=== PATIENT | female | born 1995 | race Caucasian/White ===

== ENCOUNTER 2016-05-24 19:36 | Emergency (ER) | payer MEDICAID ==
[~2016-05-24] VITALS: Ht 162.6 cm; Wt 109.4 kg
[~2016-05-24 19:36] MED LIST: ALBU1AER INH; PRED20 PO; ZITH250T PO
[2016-05-24 19:55] VITALS: BP 149/99; PULSE 97; RESP 20; TEMP 98.8; O2SAT 95
[2016-05-24 20:05] VITALS: BP 126/70; PULSE 96; O2SAT 95
[2016-05-24] MEDS ORDERED: ALBUAER3 INH (20:06)
[2016-05-24] MEDS ORDERED: ALBU0.08 NEB (20:08)
[2016-05-24] MEDS ORDERED: predniSONE 50 MG TAB PO ONE ×2 (20:45→21:45)
[2016-05-24] MEDS: RESP: ALBUTEROL 2.5 MG/IPRATROPIUM 0.5 MG NEB (SCH) INH ×2 (20:51→20:52)
[2016-05-24 21:02] VITALS: O2SAT 100
[2016-05-24] MEDS ORDERED: RESP: ALBUTEROL 2.5 MG/IPRATROPIUM 0.5 MG NEB (SCH) NEB ONE (21:45)
[2016-05-24] MEDS ORDERED: PRED20 PO (21:52)
--- NOTE | 2016-05-24 21:53 | PD ---
HPI Chief Complaint: Respiratory Symptoms Time Seen by Provider: 20:42 Travel History International Travel<30 days: No Contact w/Intl Traveler<30days: No Traveled to known affect area: No History of Present Illness HPI 21-year-old female presents to the emergency department for complaint of exacerbation of asthma. Patient states that she takes medication on a daily basis. Patient has been on steroid therapy times one month. Patient reports that she moved to the area proximally 2-3 months ago and had medications from her previous physician in [place] but ran out of her steroid approximately one month ago. Patient is not established with a primary care provider. Patient denies any recent febrile illness or respiratory illness. Patient states that she does have issues with environmental allergens. Patient denies any tobacco use but is exposed to tobacco in her household as her smokes cigarettes reportedly smokes a cigarette outside. Patient denies other concerns or complaints. Patient denies fever chills. Patient denies productive cough. Patient does not report any chest pain pleuritic pain or hemoptysis or any GI complaints also denies any urinary symptoms and denies . Patient is status post tubal ligation. Last period was 05/01/16 and normal for her. Patient reports needs medication refill of steroid therapy. PFSH Past Medical History Narrative Medical Asthma, tubal ligation, c-sections G4 P 4 AB 0; no tobacco use; nursing notes reviewed Asthma: Yes Cardiovascular Problems: Yes Respiratory: Yes Tetanus Vaccination: Never Vaccinated Influenza Vaccination: No ?: Not LMP: 05/20/2016 : 4 Para: 4 : 3 Tubal Ligation: Yes Past Surgical History Section: Yes (x4) Social History Alcohol Use: No Tobacco Use: No Substance Use: No Allergies-Medications (Allergen,Severity, Reaction): Coded Allergies: No Known Allergies (Unverified , 05/24/16) Reported Meds & Prescriptions Reported Meds & Active Scripts Active Reported Albuterol Neb (Albuterol Sulfate) 2.5 Mg/3 Ml Neb 2.5 Mg NEB Q4HR NEB PRN Proair Hfa 8.5 GM Inh (Albuterol Sulfate) 90 Mcg/Act Aer 2 Puff INH Q4-6H PRN 108 mcg/actuation Review of Systems Except as stated in HPI: all other systems reviewed are Neg General / Constitutional: No: Fever, Chills HENT: No: Congestion Cardiovascular: No: Chest Pain or Discomfort Respiratory: Positive: Cough, Shortness of Breath, Wheezing, No: Hemoptysis, Pleuritic Pain Gastrointestinal: No: Nausea, Vomiting, Diarrhea, Abdominal Pain Genitourinary: No: Dysuria, Flank Pain Musculoskeletal: No: Myalgias, Arthralgias Skin: No Rash Neurologic: No: Weakness Psychiatric: No: Anxiety Hematologic/Lymphatic: No: Lymph Node Enlargement Physical Exam Narrative GENERAL: Well-developed well-nourished female in no acute distress no respiratory distress SKIN: Warm and dry. HEAD: Normocephalic. EYES: No scleral icterus. No injection or drainage. NECK: Supple, trachea midline. No JVD or lymphadenopathy. CARDIOVASCULAR: Regular rate and rhythm without murmurs, gallops, or rubs. RESPIRATORY: Breath sounds equal bilaterally diminished bilaterally with few expiratory wheezes. No accessory muscle use. GASTROINTESTINAL: Abdomen soft, non-tender, nondistended. MUSCULOSKELETAL: No cyanosis, or edema. BACK: Nontender without obvious deformity. No CVA tenderness. Data Data Last Documented VS Vital Signs Date Time Temp Pulse Resp B/P Pulse Ox O2 Delivery O2 Flow Rate FiO2 05/24/16 21:02 100 05/24/16 21:01 Aerosol Mask 7 05/24/16 20:05 96 126/70 05/24/16 19:55 98.8 20 Orders Ecg Monitoring (05/24/16 20:42) Oximetry (05/24/16 20:42) Oxygen Administration (05/24/16 20:42) Albuterol-Ipratropium Neb (Duoneb Neb) (05/24/16 20:45) Prednisone (Deltasone) (05/24/16 20:45) Prednisone (Deltasone) (05/24/16 21:45) Albuterol-Ipratropium Neb (Duoneb Neb) (05/24/16 21:45) MDM Medical Decision Making Medical Screen Exam Complete: Yes Emergency Medical Condition: Yes Medical Record Reviewed: Yes Differential Diagnosis Exacerbation asthma, rhinosinusitis, environmental allergies, bronchitis, pneumonia Narrative Course Patient given DuoNeb updrafts 2; at time of reassessment lung sounds are much improved; patient given oral dose of prednisone 50 mg and due to few expiratory wheezes and additional DuoNeb Patient reports she has adequate amount of albuterol nebulized solution as well as pro-air inhaler. Patient requests refill for oral steroid therapy. Referrals: Primary Care Physician call for appointment Patient Instructions: General Instructions Additional Instructions: Follow-up with primary care provider Return to the emergency department for any concerns Complete course of steroid as prescribed Increase fluid hydration take acetaminophen/Tylenol as needed for fever 100.4F or greater Med/Other Pt SpecificInfo: Prescription(s) given Scripts Prednisone 20 Mg Tab20 Mg PO BID #10 TAB Ref 0 Prov:Kiesha Vallejo MD 05/24/16 Disposition: 01 DISCHARGE HOME Condition: Stable Kiesha Vallejo MD May 24, 2016 21:53
[2016-05-24 22:10] VITALS: BP 128/57; PULSE 100; RESP 20; O2SAT 98
== END 2016-05-24 22:18 | disposition home or self-care (01) ==
LOC: PHED 19:36
DX: J45.901 Unspecified asthma with (acute) exacerbation (principal)
CPT/HCPCS: 94640; 94664; 99283; J7512

== ENCOUNTER 2017-02-16 08:38 | Emergency (ER) | payer MEDICAID ==
[~2017-02-16] VITALS: Ht 165.1 cm; Wt 107.0 kg
[~2017-02-16 08:38] MED LIST changes: +ALBU0.08 NEB; -ALBU1AER INH; +ALBUAER3 INH; -ZITH250T PO
[2017-02-16 08:39] VITALS: BP 127/81; PULSE 92; RESP 16; TEMP 97.8; O2SAT 96
--- NOTE | 2017-02-16 09:13 | PD ---
HPI Chief Complaint: Cold / Flu Symptoms Time Seen by Provider: 08:44 Travel History International Travel<30 days: No Contact w/Intl Traveler<30days: No Traveled to known affect area: No History of Present Illness HPI This 22-year-old female says she been sick off and on for about 4 weeks. She's been congested and has a cough. She's been coughing up some phlegm. She has a history of asthma and has a steroid inhaler as well as pro-air. She uses both somewhat sporadically. She has a and 2 children out of had similar symptoms and have been sick off and on for several weeks. She is not aware of any mold problem or allergens in her house. She is not aware of any fever she had some discomfort in both of her years. PFSH Past Medical History Asthma: Yes Cardiovascular Problems: Yes (HEART MURMUR) Respiratory: Yes Influenza Vaccination: No ?: Not LMP: TUBAL : 4 Para: 4 : 3 Tubal Ligation: Yes Past Surgical History Section: Yes (x4) Social History Alcohol Use: No Tobacco Use: Yes (ONE EVERY 2-3 WEEKS) Substance Use: No Allergies-Medications (Allergen,Severity, Reaction): Coded Allergies: No Known Allergies (Unverified Adverse Reaction, Unknown, 02/16/17) Reported Meds & Prescriptions Reported Meds & Active Scripts Active No Active Prescriptions or Reported Medications Review of Systems General / Constitutional: No: Fever, Chills Eyes: No: Diploplia HENT: Positive: Rhinitis, Earache Respiratory: Positive: Cough Gastrointestinal: No: Vomiting, Diarrhea Genitourinary: No: Urgency, Frequency Physical Exam Narrative GENERAL: Well-developed female SKIN: Focused skin assessment warm/dry. HEAD: Atraumatic. Normocephalic. EYES: Pupils equal and round. No scleral icterus. No injection or drainage. ENT: No nasal bleeding or discharge. Mucous membranes pink and moist. TMs are negative. Posterior pharynx does not show any erythema NECK: Trachea midline. No JVD. CARDIOVASCULAR: Regular rate and rhythm. No murmur appreciated. RESPIRATORY: No accessory muscle use. Clear to auscultation. Breath sounds equal bilaterally. GASTROINTESTINAL: Abdomen soft, non-tender, nondistended. Hepatic and splenic margins not palpable. MUSCULOSKELETAL: No obvious deformities. No clubbing. No cyanosis. No edema. NEUROLOGICAL: Awake and alert. No obvious cranial nerve deficits. Motor grossly within normal limits. Normal speech. PSYCHIATRIC: Appropriate mood and affect; insight and judgment normal. Data Data Last Documented VS Vital Signs Date Time Temp Pulse Resp B/P (MAP) Pulse Ox O2 Delivery O2 Flow Rate FiO2 02/16/17 08:50 16 02/16/17 08:39 97.8 92 127/81 (96) 96 MDM Medical Decision Making Medical Screen Exam Complete: Yes Emergency Medical Condition: Yes Medical Record Reviewed: Yes Differential Diagnosis Differential of the symptoms going on for 4 weeks as repeated infections due to reinfection from family members, allergy Narrative Course I don't see any indication for antibiotics. I recommended to the patient that she use her steroid inhaler on a regular basis daily. Diagnosis Primary Impression: Upper respiratory infection Additional Instructions: Use inhaler daily Scripts No Active Prescriptions or Reported Meds Disposition: 01 DISCHARGE HOME Condition: Stable Mik Jennings MD Feb 16, 2017 09:13
== END 2017-02-16 09:19 | disposition home or self-care (01) ==
LOC: PHEFT 08:38
DX: J06.9 Acute upper respiratory infection, unspecified (principal); F17.200 Nicotine dependence, unspecified, uncomplicated
CPT/HCPCS: 99282

== ENCOUNTER 2017-04-12 20:15 | Emergency (ER) | payer MEDICAID ==
[2017-04-12] MEDS: guaiFENesin SOLUTION 200 MG/10 ML CUP PO (22:54)
[2017-04-12] MEDS: IBUPROFEN 600 MG TAB PO (22:55)
[2017-04-12] MEDS: diphenhydrAMINE HCL ELIXIR 12.5 MG/5 ML CUP PO (22:55)
[2017-04-12] MEDS: PSEUDOEPHEDRINE HCL 30 MG TAB PO (22:55)
== END 2017-04-13 | disposition home or self-care (01) ==
LOC: PHEFT 04-13
DX: B34.9 Viral infection, unspecified (principal); J45.909 Unspecified asthma, uncomplicated; R01.1 Cardiac murmur, unspecified; Z72.0 Tobacco use
CPT/HCPCS: 87081; 87804; 87804-59; 87880; 99284